=== PATIENT | female | born 1970 | race Caucasian/White ===

== ENCOUNTER 2016-08-03 17:10 | Emergency (ER) | payer BC, OTHER ==
[2016-08-03 17:29] VITALS: BP 156/98; PULSE 76; RESP 16; TEMP 98.2; O2SAT 99
[2016-08-03] MEDS ORDERED: APAP/HYDROCODONE 325/5 TAB PO ONE (18:11)
[2016-08-03] MEDS ORDERED: APAP/HYDROCODONE 325/5 TAB ONE (18:12)
== END 2016-08-03 18:17 | disposition home or self-care (01) ==
LOC: ED 17:10
DX: S93.602A Unspecified sprain of left foot, initial encounter (principal)
CPT/HCPCS: 73630; 99282; 99283; E0114

== ENCOUNTER 2017-04-17 08:55 | Emergency (ER) | payer BC ==
[2017-04-17] MEDS ORDERED: KETOROLAC TROMETHAMINE 30 MG/ML SOL ONE (09:12)
[2017-04-17] MEDS ORDERED: SODIUM CHLORIDE 0.9% 1000ML 1,000 ML IV ONE ×2 (09:50→12:10)
[2017-04-17] MEDS ORDERED: KETOROLAC TROMETHAMINE 30 MG/ML SOL IV ONE (10:20)
[2017-04-17] MEDS ORDERED: SUMATRIPTAN SUCCINATE 6 MG/0.5 ML SOL SC ONE ×3 (11:06→12:15)
[2017-04-17] MEDS ORDERED: SUMATRIPTAN SUCCINATE 6 MG/0.5 ML SOL SC PRN (12:10)
[2017-04-17 12:40] VITALS: O2SAT 100
[2017-04-17 13:43] VITALS: TEMP 97
[2017-04-17 13:46] VITALS: BP 162/100; PULSE 69; RESP 18
== END 2017-04-17 13:38 | disposition home or self-care (01) ==
LOC: ED 08:55
DX: G43.909 Migraine, unspecified, not intractable, without status migrainosus (principal)
CPT/HCPCS: 96365; 96366; 96372; 96374; 99284; 99285; J1885; J3030

== ENCOUNTER 2018-11-29 17:25 | Emergency (ER) | payer BC ==
[2018-11-29 17:47] VITALS: TEMP 96.2
[2018-11-29] MEDS ORDERED: KETOROLAC TROMETHAMINE 30 MG/ML SOL IM ONE (18:10)
[2018-11-29] MEDS ORDERED: KETOROLAC TROMETHAMINE 30 MG/ML SOL ONE (18:23)
[2018-11-29 18:28] LABS: BASOPHILS % (AUTO) 1 % (0-3); EOSINOPHILS % (AUTO) 1 % (0-9); HEMATOCRIT 38 % (35-47); HEMOGLOBIN 12.1 gm/dl (12.0-15.5); LYMPHOCYTES % (AUTO) 18.6 % (10-50); MEAN CORPUSCULAR HEMOGLOBIN 27.1 pg (27.0-32.0); MEAN CORPUSCULAR VOLUME 85 fL (81-99); MONOCYTES % (AUTO) 7.1 % (0-12); NEUTROPHILS % (AUTO) 72.1 % (37-80)
[2018-11-29 18:46] LABS: ALBUMIN 3.5 gm/dl (3.4-5.0); BILIRUBIN,DIRECT 0.1 mg/dl (0.0-0.2); BILIRUBIN,TOTAL 0.3 mg/dl (0.2-1.0); CALCIUM 8.9 mg/dl (8.5-10.1); CARBON DIOXIDE 30.4 mEq/L (21-32); CREATININE 0.75 mg/dl (0.60-1.00); CRP INFLAMMATORY 0.43 mg/dl (0.00-0.33); POTASSIUM 3.5 mMol/L (3.5-5.1); TOTAL PROTEIN 7.1 gm/dl (6.4-8.2)
[2018-11-29 19:03] LABS: APPEARANCE,URINE Clear; BILIRUBIN,URINE NEGATIVE (NEGATIVE); COLOR,URINE Yellow; GLUCOSE, URINE (UA) NEGATIVE (NEGATIVE); KETONES,URINE NEGATIVE (NEGATIVE); LEUKOCYTE ESTERASE ,URINE TRACE (NEGATIVE); NITRATE,URINE NEGATIVE (NEGATIVE); OCCULT BLOOD,URINE NEGATIVE (NEG-TRACE); UROBILINOGEN,URINE 0.2 (0.2-1.0 EU)
[2018-11-29 19:13] LABS: RBC,URINE NEG (0-3AV/HPF); WBC,URINE NEG (0-5AV/HPF)
[2018-11-29 19:14] LABS: BACTERIA NEGATIVE (< 1+); CRYSTALS NEGATIVE (0-3 AVE/HPF); EPITHELIAL CELLS NEGATIVE (SQUAMOUS)
[2018-11-29 19:47] VITALS: BP 129/68; PULSE 58; RESP 18; O2SAT 97
== END 2018-11-29 19:48 | disposition home or self-care (01) ==
LOC: ED 17:25
DX: R07.1 Chest pain on breathing (principal); M94.0 Chondrocostal junction syndrome [Tietze]
CPT/HCPCS: 36415; 80048; 80076; 81001; 85025; 87088; 96372; 99282; 99283; J1885